=== PATIENT | female | born 1965 | race American Indian/Alaskan Native ===

== ENCOUNTER → 2021-04-11 | Outpatient (CLI) | payer OTHER ==
[~2021-04-11] MED LIST: ALBU90OI; ALBU90OI61 INH; AMBIEN CR PO; ASPI81CH PO; ATOR40TA PO; ATOR80 PO; Amoxicillin500 MG PO; CALCA500CH PO; CLOP75 PO; CODACE30 PO; CYCL10 PO; Crutch1 EACH MISC; DIVA125 PO; DULOXETINE HCL30 MG PO; EPIN.3I IM; ESZO2 PO; FEXO60; HYOS0.375T; IBUP800 PO; LORA10ER PO; Lo-Dose Aspirin81 MG PO; OMEP20ER PO; PRED20 PO; Prilosec Otc20 MG PO; RANI150 PO; RXLORA1 PO; SERT100 PO; SERT25; SERT50; SERT50 PO; SUMA25 PO; Sudogest30 MG PO; TRAM50 PO; Ultram50 MG PO; ZOLOFT20 MG/ML PO; ZOLP5 PO
[2021-04-11 18:27] LABS: BASOPHILS ABSOLUTE AUTO 0.05 K/mm3 (0.00-0.23); BASOPHILS PERCENT AUTO 0 % (0-2); EOSINOPHILS ABSOLUTE AUTO 0.39 K/mm3 (0.00-0.68); EOSINOPHILS PERCENT AUTO 3 % (0-6); Hematocrit 44.9 % (33.0-51.0); Hemoglobin 14.9 g/dL (11.5-16.0); IMMATURE GRAN ABSOLUTE AUTO 0.04 K/mm3 (0.00-0.10); IMMATURE GRAN PERCENT AUTO 0 % (0-1); LYMPHOCYTES ABSOLUTE AUTO 3.53 K/mm3 (0.84-5.20); LYMPHOCYTES PERCENT AUTO 31 % (21-46); MONOCYTES ABSOLUTE AUTO 0.83 K/mm3 (0.16-1.47); MONOCYTES PERCENT AUTO 7 % (4-13); Mean Corpuscular HGB 30.2 pg (26.0-34.0); Mean Corpuscular HGB Conc 33.2 g/dL (31.5-36.5); Mean Corpuscular Volume 91 fL (80-100); Mean Platelet Volume 9.4 fL (9.1-12.4); NEUTROPHILS ABSOLUTE AUTO 6.48 K/mm3 (1.96-9.15); NEUTROPHILS PERCENT AUTO 57 % (41-73); Platelet Count 320 K/mm3 (150-400); RDW Coefficient Variation 13.2 % (11.7-14.2); RDW Standard Deviation 44.1 fL (35.1-46.3); Red Blood Cell Count 4.93 M/mm3 (3.80-5.20); White Blood Cell Count 11.32 K/mm3 (4.00-11.30)
[2021-04-11 18:46] LABS: Anion Gap 10 mmol/L (6-16); Blood Urea Nitrogen 9 mg/dL (8-24); Bun/Creatinine Ratio 12.9 (12.0-20.0); CO2, Blood 29 mmol/L (21-32); Calcium, Blood 9.3 mg/dL (8.5-10.1); Chloride, Blood 103 mmol/L (98-108); Glomerular Filtration Rate >60 (60-); Glucose, Blood 93 mg/dL (70-99); Potassium, Blood 3.7 mmol/L (3.5-5.5); Sodium, Blood 142 mmol/L (136-145); Thyroid Stimulating Hormone 1.886 uIU/mL (0.360-4.800)
[2021-04-11 18:49] LABS: Troponin I <0.017 ng/mL (0.000-0.040)
== END | disposition home or self-care (01) ==
LOC: LAB SHORT 18:21
PROVIDERS: Physician Assistant Surgical
DX: R07.9 Chest pain, unspecified (principal); R53.83 Other fatigue
CPT/HCPCS: 80048; 84443; 84484; 85025

== ENCOUNTER → 2021-07-15 | Outpatient (CLI) | payer OTHER | END | disposition home or self-care (01) | LOC: LAB SHORT 11:30 → LAB 11:30 | DX: G89.4 Chronic pain syndrome (principal) | CPT/HCPCS: G0480 ==

== ENCOUNTER 2023-04-22 10:38 | Day surgery (SDC) | payer OTHER ==
[~2023-04-22] VITALS: Ht 162.6 cm; Wt 79.8 kg
[~2023-04-22 10:38] MED LIST changes: +BACL10 PO; +Crestor40 MG PO; +DOXY100 PO; +EZET10 PO; +MELATONIN5 M1 PO; +METO25ER PO; +NICO21TP TOP; +TIOT18 INH
[2023-04-22 11:46] VITALS: BP 144/76
[2023-04-22] MEDS ORDERED: NS 1,000 ML IV ONE ×2 (13:39→13:49)
[2023-04-22] MEDS ORDERED: Nitroglycerin 2 MG/20 ML BTL ONE (13:39)
[2023-04-22] MEDS ORDERED: Heparin Sodium 1000 Units/ML 10ML MDV ONE (13:39)
[2023-04-22] MEDS ORDERED: NS 500 ML IV ONE ×2 (13:43)
[2023-04-22] MEDS ORDERED: Heparin Sodium 1000 Units/ML 10ML MDV IV ONE ×2 (13:44)
[2023-04-22] MEDS ORDERED: FentaNYL Citrate 50 MCG/ML 2 ML Injection IV ONE ×2 (13:49→14:09)
[2023-04-22] MEDS ORDERED: Midazolam HCl 1MG / ML 2ML Vial IV ONE ×2 (13:50→14:09)
[2023-04-22] MEDS ORDERED: Verapamil HCL 2.5 MG/ML 2ML Injection ONE (14:45)
--- NOTE | 2023-04-22 15:20 | NUR ---
[facility] returned [facility]. asleep, but awakens easily, answers question approriately. left groin site soft and nontender, no hematoma, no bleeding. left radial artery TR band in place no hematoma, no bleeding.
--- NOTE | 2023-04-22 15:37 | NUR ---
dr Cardona speaking to family.
[2023-04-22] MEDS ORDERED: Acetaminophen 325 MG TABLET ONE (16:01)
--- NOTE | 2023-04-22 16:15 | NUR ---
patient sitting up in bed, right groin site soft and nontender, no hematoma, no bleeding
--- NOTE | 2023-04-22 16:17 | NUR ---
AIR REMOVAL FROM tr BAND STARTED. SITE STABLE
--- NOTE | 2023-04-22 16:50 | NUR ---
air completely removed from band, site unchanged
--- NOTE | 2023-04-22 17:00 | NUR ---
patient up to rest room. tolerated well. right groin site stable
--- NOTE | 2023-04-22 17:45 | NUR ---
discharge instructions and precautions reviewed with patient. patient verbalized understanding. no further questions. IV site dced by Van Dawson. left groin site soft and nontender, no hematoma, no bleeding dressing D&I. Patient dressed. denies any left foot pain at this time. left radial artery TR band removed. no hematoma,no bleeding, fingers warm and pink. cloth dot placed to site and wrist board placed with instruction. patient trasferred to waiting car via wheel chair by Van Chahal. Danar yuniel.
== END 2023-04-22 17:45 | disposition home or self-care (01) ==
LOC: MHTC 10:38
DX: I70.213 Atherosclerosis of native arteries of extremities with intermittent claudication, bilateral legs (principal); I10 Essential (primary) hypertension; I25.10 Atherosclerotic heart disease of native coronary artery without angina pectoris; J44.9 Chronic obstructive pulmonary disease, unspecified; K21.9 Gastro-esophageal reflux disease without esophagitis; E78.5 Hyperlipidemia, unspecified; F17.210 Nicotine dependence, cigarettes, uncomplicated; Z88.1 Allergy status to other antibiotic agents; Z88.5 Allergy status to narcotic agent; Z88.6 Allergy status to analgesic agent; Z88.8 Allergy status to other drugs, medicaments and biological substances; Z79.02 Long term (current) use of antithrombotics/antiplatelets; Z79.899 Other long term (current) drug therapy
CPT/HCPCS: 76937; 99152; 99153; A9270; C1760; C1769; C1887; C1894; J1644; J2250; J3010; J7030; J7040; Q9967

== ENCOUNTER 2024-11-14 01:14 | Day surgery (SDC) | payer OTHER ==
[2024-11-14] MEDS ORDERED: INCLISIRAN SODIUM 284 MG/1.5 ML SYRINGE SC SCH (06:00)
[2024-11-14 15:24] VITALS: BP 174/79
--- NOTE | 2024-11-14 15:50 | NUR ---
PT DID A 20 MIN OBSERVATION POST INJECTION. PT HAD 9YO GRANDCHILD WITH HER TODAY. NO SIGNS OF INJECTION REACTION. PT DID REPORT INJECTION SITE WAS SORE. PT EDUCATED AND WILL SEEK MEDICAL ATTENTION FOR ANY ADVERSE SIDE EFFECTS
== END 2024-11-14 15:46 | disposition home or self-care (01) ==
LOC: ATC 01:14
DX: E78.00 Pure hypercholesterolemia, unspecified (principal); I25.10 Atherosclerotic heart disease of native coronary artery without angina pectoris; I10 Essential (primary) hypertension; E11.51 Type 2 diabetes mellitus with diabetic peripheral angiopathy without gangrene; I25.2 Old myocardial infarction; M19.90 Unspecified osteoarthritis, unspecified site; J44.89 Other specified chronic obstructive pulmonary disease; M79.7 Fibromyalgia; K21.9 Gastro-esophageal reflux disease without esophagitis; G40.909 Epilepsy, unspecified, not intractable, without status epilepticus; F17.210 Nicotine dependence, cigarettes, uncomplicated; Z79.02 Long term (current) use of antithrombotics/antiplatelets; Z79.899 Other long term (current) drug therapy; Z88.1 Allergy status to other antibiotic agents; Z88.5 Allergy status to narcotic agent; Z88.8 Allergy status to other drugs, medicaments and biological substances; Z91.041 Radiographic dye allergy status; Z95.5 Presence of coronary angioplasty implant and graft
CPT/HCPCS: 96372; J1306

== ENCOUNTER 2025-02-16 01:20 | Day surgery (SDC) | payer OTHER ==
[2025-02-16] MEDS ORDERED: INCLISIRAN SODIUM 284 MG/1.5 ML SYRINGE SC SCH (06:00)
[2025-02-16 10:57] VITALS: BP 180/88
[2025-02-16] MEDS ORDERED: LOSA25 PO (11:29)
== END 2025-02-16 11:07 | disposition home or self-care (01) ==
LOC: ATC 01:20
DX: E78.00 Pure hypercholesterolemia, unspecified (principal); I73.9 Peripheral vascular disease, unspecified; F17.210 Nicotine dependence, cigarettes, uncomplicated; Z88.8 Allergy status to other drugs, medicaments and biological substances; Z88.1 Allergy status to other antibiotic agents; Z79.899 Other long term (current) drug therapy
CPT/HCPCS: 96372; 99211; J1306